=== PATIENT | female | born 1955 | race Caucasian/White ===

== ENCOUNTER 2020-04-30 13:10 | Inpatient (IN) ==
[2020-04-30] MEDS ORDERED: CeFAZolin Syr 2,000MG/20 ML 2,000 MG/20 ML SYRINGE IVPB ONE (13:43)
[2020-04-30] MEDS ORDERED: Ringers Solution, Lactated 1,000 ML IVC SCH ×2 (13:45→14:00)
[2020-04-30] MEDS ORDERED: Ketorolac 15 MG/ML VIAL IVP PRN (13:49)
[2020-04-30] MEDS ORDERED: Ondansetron 4 MG/2 ML VIAL IVP PRN ×2 (13:49→18:49)
[2020-04-30] MEDS ORDERED: Acetaminophen IV 1,000 MG/100 ML INFUS..BTL IVPB PRN (13:49)
[2020-04-30] MEDS ORDERED: *HR* OxyCODONE Immed Rel 5 MG TABLET PO PRN (13:49)
[2020-04-30] MEDS ORDERED: Acetaminophen IV 1,000 MG/100 ML INFUS..BTL ONE (14:24)
[2020-04-30] MEDS ORDERED: Hydrocortisone Sodium Succ 100 MG/2 ML VIAL ONE (14:24)
[2020-04-30] MEDS: *HR* HYDROmorphone PF 0.5 MG/0.5 ML SYRINGE IVP PRN ×4 (16:30→17:20)
[2020-04-30] MEDS ORDERED: Naloxone 0.4 MG/ML INJ IVP PRN (18:49)
[2020-04-30] MEDS ORDERED: 0.9 % Sodium Chloride 1,000 ML IVC SCH (18:49)
[2020-04-30] MEDS: Ipratropium/Albuterol Neb 3 ML IH SCH ×2 (19:56→23:23)
[2020-04-30] MEDS: Budesonide/Formoterol 160/4.5 1 PUFF INH IH SCH (19:56)
[2020-04-30] MEDS: Sennosides/Docusate Sodium TABLET PO SCH (21:09)
[2020-04-30] MEDS: *HR* Heparin 5,000 UNIT/ML VIAL SQ SCH (21:09)
[2020-04-30] MEDS: Gabapentin 300 MG CAPSULE PO SCH (21:13)
[2020-04-30] MEDS: Famotidine 20 MG TABLET PO SCH (21:13)
[2020-04-30] MEDS: Ketorolac 15 MG/ML VIAL IVP SCH (21:30)
[2020-05-01 01:59] LABS: Hematocrit 42.7 % (35.3-44.9); Hemoglobin 13.7 g/dL (11.5-15.4); Mean Corpuscular HGB Conc 32.1 g/dL (31.6-35.5); Mean Corpuscular Hemoglobin 30.1 pg (28.0-33.3); Mean Corpuscular Volume 93.8 fL (83.0-100.0); Mean Platelet Volume 11.7 fL (9.4-12.4); Platelet Count 165 K/mcL (140-400); Red Blood Count 4.55 M/mcL (3.82-4.97); Red Cell Distribution Width 12.7 % (11.5-14.5)
[2020-05-01 02:00] LABS: White Blood Count 13.8 K/mcL (4.3-11.1)
[2020-05-01 02:17] LABS: % Iron Saturation 7 % (15-50); BUN/Creatinine Ratio 30 (6-26); Blood Urea Nitrogen 20 mg/dL (8-23); Calcium 8.2 mg/dL (8.6-10.3); Carbon Dioxide 25 mEq/L (23-29); Chloride 107 mEq/L (98-107); Glucose 157 mg/dL (70-105); Iron 22 mcg/dL (50-170); Magnesium 1.9 mg/dL (1.6-2.6); Osmolality,Calculated 294 (280-300); Potassium 4.8 mEq/L (3.5-5.1); Sodium 139 mEq/L (136-145); Transferrin 221 mg/dL (203-362); eGFR For African Americans > 60 (> 60); eGFR For Non-African Americans > 60 (> 60)
[2020-05-01] MEDS: *HR* HYDROcodone/Acet 5/325 mg TABLET PO PRN ×4 (02:32→20:42)
[2020-05-01] MEDS: Ipratropium/Albuterol Neb 3 ML IH SCH ×6 (04:07→23:11)
[2020-05-01] MEDS: Ketorolac 15 MG/ML VIAL IVP SCH ×5 (05:46→23:17)
[2020-05-01] MEDS: *HR* Heparin 5,000 UNIT/ML VIAL SQ SCH ×3 (05:48→20:43)
[2020-05-01] MEDS: Tiotropium 18 MCG inhalation IH SCH (07:22)
[2020-05-01] MEDS: Budesonide/Formoterol 160/4.5 1 PUFF INH IH SCH ×2 (07:22→19:37)
[2020-05-01] MEDS ORDERED: Iron Sucrose Complex 400 MG in 0.9 % Sodium Chloride 250 ML IVPB ONE (10:11)
[2020-05-01] MEDS ORDERED: Folic Acid 1 MG in 0.9 % Sodium Chloride 50 ML IVPB ONE (10:11)
[2020-05-01] MEDS ORDERED: Thiamine (B-1) 100 MG in 0.9 % Sodium Chloride 50 ML IVPB ONE (10:11)
[2020-05-01] MEDS: Aspirin 81 MG TAB.CHEW PO SCH (10:16)
[2020-05-01] MEDS: Furosemide 20 MG TABLET PO SCH (10:17)
[2020-05-01] MEDS: Sennosides/Docusate Sodium TABLET PO SCH ×2 (10:18→20:42)
[2020-05-01] MEDS: Gabapentin 300 MG CAPSULE PO SCH ×3 (10:18→20:42)
[2020-05-01] MEDS: Famotidine 20 MG TABLET PO SCH ×2 (10:18→20:42)
[2020-05-02] MEDS: *HR* HYDROcodone/Acet 5/325 mg TABLET PO PRN ×4 (00:32→18:46)
[2020-05-02] MEDS: Ipratropium/Albuterol Neb 3 ML IH SCH ×5 (03:15→20:02)
[2020-05-02 05:32] LABS: BUN/Creatinine Ratio 26 (6-26); Blood Urea Nitrogen 18 mg/dL (8-23); Calcium 8.1 mg/dL (8.6-10.3); Carbon Dioxide 27 mEq/L (23-29); Chloride 107 mEq/L (98-107); Glucose 142 mg/dL (70-105); Osmolality,Calculated 290 (280-300); Phosphorous 2.6 mg/dL (2.7-4.5); Potassium 3.8 mEq/L (3.5-5.1); Sodium 138 mEq/L (136-145); eGFR For African Americans > 60 (> 60); eGFR For Non-African Americans > 60 (> 60)
[2020-05-02] MEDS: *HR* Heparin 5,000 UNIT/ML VIAL SQ SCH ×3 (05:32→21:07)
[2020-05-02] MEDS: Ketorolac 15 MG/ML VIAL IVP SCH ×4 (05:32→23:38)
[2020-05-02] MEDS: Budesonide/Formoterol 160/4.5 1 PUFF INH IH SCH ×2 (08:04→20:02)
[2020-05-02] MEDS: Tiotropium 18 MCG inhalation IH SCH (08:04)
[2020-05-02] MEDS ORDERED: Potassium Phosphate 44 MEQ in 0.9 % Sodium Chloride 250 ML IVPB ONE (09:15)
[2020-05-02] MEDS: Famotidine 20 MG TABLET PO SCH ×2 (09:25→21:06)
[2020-05-02] MEDS: Aspirin 81 MG TAB.CHEW PO SCH (09:25)
[2020-05-02] MEDS: Sennosides/Docusate Sodium TABLET PO SCH ×2 (09:25→21:06)
[2020-05-02] MEDS: Gabapentin 300 MG CAPSULE PO SCH ×3 (09:25→21:06)
[2020-05-02] MEDS: Furosemide 20 MG TABLET PO SCH (09:25)
[2020-05-02 15:18] LABS: Bacteria,Urine Few per hpf (None-Few); Bilirubin,Urine Negative (Negative); Blood,Urine Trace (Negative); Clarity,Urine Clear (Clear); Color,Urine Yellow (Yellow); Glucose,Urine (UA) Normal (Normal); Ketones,Urine Negative (Negative); Leukocyte Esterase,Urine Negative (Negative); Mucus,Urine Few per lpf (None-Few); Nitrite,Urine Negative (Negative); Protein,Urine Trace mg/dL (Neg-Trace); RBC,Urine 0-3 per hpf (0-3); Specific Gravity,Urine > 1.030 (1.010-1.025); Squamous Epithelial Cell,Urine Moderate per hpf (None-Few); Urobilinogen,Urine Normal (Normal)
[2020-05-03] MEDS: Ipratropium/Albuterol Neb 3 ML IH SCH ×7 (00:27→23:26)
[2020-05-03] MEDS: *HR* HYDROcodone/Acet 5/325 mg TABLET PO PRN ×5 (02:31→21:05)
[2020-05-03] MEDS: Ketorolac 15 MG/ML VIAL IVP SCH ×4 (05:51→23:14)
[2020-05-03] MEDS: *HR* Heparin 5,000 UNIT/ML VIAL SQ SCH ×3 (05:51→21:10)
[2020-05-03] MEDS: Budesonide/Formoterol 160/4.5 1 PUFF INH IH SCH ×2 (07:46→20:40)
[2020-05-03] MEDS: Tiotropium 18 MCG inhalation IH SCH (07:46)
[2020-05-03] MEDS: Furosemide 20 MG TABLET PO SCH (07:56)
[2020-05-03] MEDS: Sennosides/Docusate Sodium TABLET PO SCH ×2 (07:56→21:05)
[2020-05-03] MEDS: MOM Conc 10 ML UD.LIQ PO SCH (07:56)
[2020-05-03] MEDS: Gabapentin 300 MG CAPSULE PO SCH ×3 (07:56→21:05)
[2020-05-03] MEDS: Aspirin 81 MG TAB.CHEW PO SCH (07:56)
[2020-05-03] MEDS: Famotidine 20 MG TABLET PO SCH ×2 (07:56→21:04)
[2020-05-03] MEDS ORDERED: Iron Sucrose Complex 400 MG in 0.9 % Sodium Chloride 250 ML IVPB ONE (10:11)
[2020-05-04] MEDS: *HR* HYDROcodone/Acet 5/325 mg TABLET PO PRN ×3 (01:27→13:14)
[2020-05-04] MEDS: Ipratropium/Albuterol Neb 3 ML IH SCH ×6 (04:03→23:34)
[2020-05-04] MEDS: Ketorolac 15 MG/ML VIAL IVP SCH ×4 (05:27→23:48)
[2020-05-04] MEDS: *HR* Heparin 5,000 UNIT/ML VIAL SQ SCH ×3 (05:28→21:14)
[2020-05-04] MEDS: Famotidine 20 MG TABLET PO SCH ×2 (07:40→21:14)
[2020-05-04] MEDS: Gabapentin 300 MG CAPSULE PO SCH ×3 (07:41→21:14)
[2020-05-04] MEDS: Furosemide 20 MG TABLET PO SCH (07:41)
[2020-05-04] MEDS: MOM Conc 10 ML UD.LIQ PO SCH (07:41)
[2020-05-04] MEDS: Sennosides/Docusate Sodium TABLET PO SCH ×2 (07:41→21:14)
[2020-05-04] MEDS: Aspirin 81 MG TAB.CHEW PO SCH (07:41)
[2020-05-04] MEDS: Tiotropium 18 MCG inhalation IH SCH (11:15)
[2020-05-04] MEDS: Budesonide/Formoterol 160/4.5 1 PUFF INH IH SCH ×2 (11:15→19:35)
[2020-05-05] MEDS: Ipratropium/Albuterol Neb 3 ML IH SCH ×2 (04:17→07:57)
[2020-05-05 04:38] LABS: BUN/Creatinine Ratio 23 (6-26); Blood Urea Nitrogen 14 mg/dL (8-23); Calcium 8.6 mg/dL (8.6-10.3); Carbon Dioxide 29 mEq/L (23-29); Chloride 106 mEq/L (98-107); Glucose 116 mg/dL (70-105); Magnesium 2.2 mg/dL (1.6-2.6); Osmolality,Calculated 291 (280-300); Sodium 140 mEq/L (136-145); eGFR For African Americans > 60 (> 60); eGFR For Non-African Americans > 60 (> 60)
[2020-05-05 04:51] LABS: Mean Corpuscular HGB Conc 32.5 g/dL (31.6-35.5); Mean Corpuscular Hemoglobin 30.5 pg (28.0-33.3); Mean Corpuscular Volume 93.8 fL (83.0-100.0); Mean Platelet Volume 11.7 fL (9.4-12.4); Platelet Count 157 K/mcL (140-400); Red Blood Count 3.41 M/mcL (3.82-4.97); Red Cell Distribution Width 13.3 % (11.5-14.5); White Blood Count 8.4 K/mcL (4.3-11.1)
[2020-05-05 06:25] LABS: Hemoglobin 10.4 g/dL (11.5-15.4)
[2020-05-05] MEDS: *HR* Heparin 5,000 UNIT/ML VIAL SQ SCH (06:56)
[2020-05-05] MEDS: Ketorolac 15 MG/ML VIAL IVP SCH (06:57)
[2020-05-05 07:08] VITALS: BP 141/76
[2020-05-05] MEDS: *HR* HYDROcodone/Acet 5/325 mg TABLET PO PRN (07:50)
[2020-05-05] MEDS: Budesonide/Formoterol 160/4.5 1 PUFF INH IH SCH (07:57)
[2020-05-05] MEDS: Tiotropium 18 MCG inhalation IH SCH (08:12)
[2020-05-05] MEDS: MOM Conc 10 ML UD.LIQ PO SCH (09:56)
[2020-05-05] MEDS: Gabapentin 300 MG CAPSULE PO SCH (09:57)
[2020-05-05] MEDS: Furosemide 20 MG TABLET PO SCH (09:57)
[2020-05-05] MEDS: Famotidine 20 MG TABLET PO SCH (09:58)
[2020-05-05] MEDS: Aspirin 81 MG TAB.CHEW PO SCH (09:58)
[2020-05-05] MEDS: Sennosides/Docusate Sodium TABLET PO SCH (09:58)
== END 2020-05-05 11:29 | disposition home health service (06) | DRG 165 ==
LOC: SAMDAY 13:10 → 2NNU 18:22
PROVIDERS: ADMIT Thoracic Surgery (Cardiothoracic Vascular Surgery); ATTEND Thoracic Surgery (Cardiothoracic Vascular Surgery)

== ENCOUNTER 2020-05-21 06:51 | Inpatient (IN) ==
[2020-05-21] MEDS ORDERED: Ipratropium/Albuterol Neb 3 ML IH ONE (07:05)
[2020-05-21 07:39] LABS: Basophils # 0.1 K/mcL (0.0-0.2); Basophils % 0.5 %; Eosinophils # 0.1 K/mcL (0.0-0.6); Eosinophils % 0.7 %; Hematocrit 33.5 % (35.3-44.9); Hemoglobin 10.5 g/dL (11.5-15.4); Immature Granulocytes % 1.8 % (0-4); Lymphocytes # 0.5 K/mcL (0.6-4.6); Lymphocytes % 4.1 %; Mean Corpuscular HGB Conc 31.3 g/dL (31.6-35.5); Mean Corpuscular Hemoglobin 28.5 pg (28.0-33.3); Mean Corpuscular Volume 90.8 fL (83.0-100.0); Monocytes # 0.8 K/mcL (0.0-1.3); Monocytes % 6.2 %; Neutrophils # 10.6 K/mcL (1.6-8.9); Platelet Count 565 K/mcL (140-400); Red Blood Count 3.69 M/mcL (3.82-4.97); Red Cell Distribution Width 15.3 % (11.5-14.5); Segmented Neutrophils % 86.7 %; White Blood Count 12.2 K/mcL (4.3-11.1)
[2020-05-21 08:01] LABS: INR 1.5; Prothrombin Time 17.6 Seconds (9.4-12.1)
[2020-05-21] MEDS ORDERED: Azithromycin 500 MG in 0.9 % Sodium Chloride 250 ML IVPB ONE (08:02)
[2020-05-21] MEDS ORDERED: cefTRIAXone 1,000 MG in 0.9 % Sodium Chloride Mini Bag 100 ML IVPB ONE (08:02)
[2020-05-21 08:04] LABS: Activated Partial Thrombo Time 31.7 Seconds (26.0-36.0)
[2020-05-21 08:20] LABS: Fibrinogen > 1000 mg/dL (169-393)
[2020-05-21 08:21] LABS: Alanine Aminotransferase 108 Units/L (7-52); Albumin 2.8 g/dL (3.5-5.7); Albumin/Globulin Ratio 0.6 (1.1-2.2); Alkaline Phosphatase 242 Units/L (34-104); Aspartate Amino Transferase 112 Units/L (13-39); BUN/Creatinine Ratio 29 (6-26); Bilirubin,Indirect 0.4 mg/dL (0.0-1.0); Bilirubin,Total 0.4 mg/dL (0.3-1.0); Blood Urea Nitrogen 14 mg/dL (8-23); Calcium 8.4 mg/dL (8.6-10.3); Carbon Dioxide 27 mEq/L (23-29); Chloride 101 mEq/L (98-107); Ferritin 840 ng/mL (10-120); Globulin 4.8 g/dL (2.4-3.5); Glucose 139 mg/dL (70-105); Lactate Dehydrogenase 193 Units/L (140-271); Osmolality,Calculated 285 (280-300); Phosphorous 3.9 mg/dL (2.7-4.5); Potassium 3.7 mEq/L (3.5-5.1); Sodium 136 mEq/L (136-145); Total Protein 7.6 g/dL (6.4-8.9); Troponin I < 0.03 ng/mL (< 0.04); eGFR For African Americans > 60 (> 60); eGFR For Non-African Americans > 60 (> 60)
[2020-05-21] MEDS ORDERED: Isovue-370 500 ML BOTTLE IVP ONE (08:30)
[2020-05-21 09:17] LABS: C-Reactive Protein > 300 mg/L (Less than 10)
[2020-05-21 09:19] LABS: Bilirubin,Urine Negative (Negative); Blood,Urine Negative (Negative); Clarity,Urine Clear (Clear); Color,Urine Yellow (Yellow); Glucose,Urine (UA) Normal (Normal); Ketones,Urine 20 mg/dL (Negative); Leukocyte Esterase,Urine Negative (Negative); Mucus,Urine Few per lpf (None-Few); Nitrite,Urine Negative (Negative); Protein,Urine 30 mg/dL (Neg-Trace); Specific Gravity,Urine 1.029 (1.010-1.025); Squamous Epithelial Cell,Urine Moderate per hpf (None-Few); WBC,Urine 0-3 per hpf (0-3)
[2020-05-21] MEDS ORDERED: *HR* HYDROmorphone 2 MG/ML SYRINGE IVP STA (09:43)
[2020-05-21] MEDS ORDERED: Ondansetron 4 MG/2 ML VIAL IVP PRN (10:02)
[2020-05-21] MEDS ORDERED: *HR* HYDROcodone/Acet 5/325 mg TABLET PO PRN (10:02)
[2020-05-21] MEDS ORDERED: 0.9 % Sodium Chloride 1,000 ML IVC SCH (10:15)
[2020-05-21 10:17] LABS: Adenovirus Not Detected (Not Detect); Bordetella Pertussis Not Detected (Not Detect); Chlamydophila pneumoniae Not Detected (Not Detect); Coronavirus 229E Not Detected (Not Detect); Coronavirus HKU1 Not Detected (Not Detect); Coronavirus NL63 Not Detected (Not Detect); Coronavirus OC43 Not Detected (Not Detect); Human Metapneumovirus Not Detected (Not Detect); Human Rhinovirus/Enterovirus Not Detected (Not Detect); Influenza A Subtype 2009 H1 Not Detected (Not Detect); Influenza B Not Detected (Not Detect); Mycoplasma pneumoniae Not Detected (Not Detect); Parainfluenza Virus 1 Not Detected (Not Detect); Parainfluenza Virus 2 Not Detected (Not Detect); Parainfluenza Virus 3 Not Detected (Not Detect); Parainfluenza Virus 4 Not Detected (Not Detect); Respiratory Syncytial Virus Not Detected (Not Detect); SARS-CoV-2 Not Detected (Not Detect)
[2020-05-21] MEDS ORDERED: Ipratropium/Albuterol Neb 3 ML IH SCH (12:00)
[2020-05-21] MEDS ORDERED: *HR* Heparin 5,000 UNIT/ML VIAL SQ SCH (14:00)
[2020-05-21] MEDS: Gabapentin 300 MG CAPSULE PO SCH ×2 (14:24→20:36)
[2020-05-21] MEDS: *HR* Heparin 5,000 UNIT/ML VIAL SQ SCH ×2 (14:25→20:36)
[2020-05-21] MEDS: 0.9 % Sodium Chloride 1,000 ML IVC SCH (14:26)
[2020-05-21] MEDS ORDERED: Gabapentin 300 MG CAPSULE PO SCH (15:00)
[2020-05-21] MEDS ORDERED: Famotidine 20 MG TABLET PO SCH (16:30)
[2020-05-21] MEDS: Ipratropium/Albuterol Neb 3 ML IH SCH ×3 (16:39→23:48)
[2020-05-21] MEDS: *HR* HYDROcodone/Acet 5/325 mg TABLET PO PRN ×2 (17:21→21:22)
[2020-05-21] MEDS: Famotidine 20 MG TABLET PO SCH (17:24)
[2020-05-21] MEDS: Sennosides/Docusate Sodium TABLET PO SCH (20:36)
[2020-05-21] MEDS ORDERED: Sennosides/Docusate Sodium TABLET PO SCH (21:00)
[2020-05-22] MEDS: Ondansetron 4 MG/2 ML VIAL IVP PRN ×2 (00:30→07:15)
[2020-05-22] MEDS: 0.9 % Sodium Chloride 1,000 ML IVC SCH ×2 (01:23→13:52)
[2020-05-22] MEDS: Ipratropium/Albuterol Neb 3 ML IH SCH ×6 (03:41→23:47)
[2020-05-22] MEDS: *HR* Heparin 5,000 UNIT/ML VIAL SQ SCH ×3 (06:12→20:48)
[2020-05-22 06:40] LABS: Hematocrit 30.9 % (35.3-44.9); Hemoglobin 9.7 g/dL (11.5-15.4); Mean Corpuscular HGB Conc 31.4 g/dL (31.6-35.5); Mean Corpuscular Hemoglobin 29.3 pg (28.0-33.3); Mean Corpuscular Volume 93.4 fL (83.0-100.0); Platelet Count 477 K/mcL (140-400); Red Blood Count 3.31 M/mcL (3.82-4.97); Red Cell Distribution Width 15.8 % (11.5-14.5); White Blood Count 8.5 K/mcL (4.3-11.1)
[2020-05-22 06:59] LABS: BUN/Creatinine Ratio 27 (6-26); Blood Urea Nitrogen 14 mg/dL (8-23); Calcium 7.9 mg/dL (8.6-10.3); Carbon Dioxide 25 mEq/L (23-29); Chloride 101 mEq/L (98-107); Glucose 108 mg/dL (70-105); Osmolality,Calculated 279 (280-300); Potassium 4.3 mEq/L (3.5-5.1); Sodium 134 mEq/L (136-145); eGFR For African Americans > 60 (> 60); eGFR For Non-African Americans > 60 (> 60)
[2020-05-22] MEDS: Famotidine 20 MG TABLET PO SCH ×2 (07:16→16:18)
[2020-05-22] MEDS: Gabapentin 300 MG CAPSULE PO SCH ×3 (07:16→20:50)
[2020-05-22] MEDS: Sennosides/Docusate Sodium TABLET PO SCH ×2 (07:17→20:48)
[2020-05-22] MEDS: *HR* HYDROcodone/Acet 5/325 mg TABLET PO PRN ×3 (07:17→20:50)
[2020-05-22] MEDS: cefTRIAXone 2,000 MG in 0.9 % Sodium Chloride Mini Bag 100 ML IVPB SCH (07:22)
[2020-05-22] MEDS: Azithromycin 500 MG in 0.9 % Sodium Chloride 250 ML IVPB SCH (07:22)
[2020-05-22] MEDS ORDERED: cefTRIAXone 2,000 MG in 0.9 % Sodium Chloride Mini Bag 100 ML IVPB SCH (09:00)
[2020-05-22] MEDS ORDERED: Isosorbide MONOnitrate (24 HR) 30 MG TAB.ER.24H PO SCH ×2 (09:00)
[2020-05-22] MEDS ORDERED: Azithromycin 500 MG in 0.9 % Sodium Chloride 250 ML IVPB SCH (09:00)
[2020-05-22] MEDS ORDERED: Aspirin 81 MG TAB.CHEW PO SCH ×2 (09:00)
[2020-05-23 02:45] LABS: Hematocrit 29.1 % (35.3-44.9); Hemoglobin 8.7 g/dL (11.5-15.4); Mean Corpuscular HGB Conc 29.9 g/dL (31.6-35.5); Mean Corpuscular Hemoglobin 28.4 pg (28.0-33.3); Mean Corpuscular Volume 95.1 fL (83.0-100.0); Mean Platelet Volume 10.2 fL (9.4-12.4); Platelet Count 429 K/mcL (140-400); Red Blood Count 3.06 M/mcL (3.82-4.97); Red Cell Distribution Width 15.9 % (11.5-14.5); White Blood Count 6.9 K/mcL (4.3-11.1)
[2020-05-23 02:55] LABS: BUN/Creatinine Ratio 28 (6-26); Blood Urea Nitrogen 14 mg/dL (8-23); Calcium 7.6 mg/dL (8.6-10.3); Carbon Dioxide 24 mEq/L (23-29); Chloride 103 mEq/L (98-107); Glucose 107 mg/dL (70-105); Osmolality,Calculated 279 (280-300); Potassium 3.9 mEq/L (3.5-5.1); Sodium 134 mEq/L (136-145); eGFR For African Americans > 60 (> 60); eGFR For Non-African Americans > 60 (> 60)
[2020-05-23] MEDS: 0.9 % Sodium Chloride 1,000 ML IVC SCH ×3 (03:47→16:12)
[2020-05-23] MEDS: Ipratropium/Albuterol Neb 3 ML IH SCH ×6 (03:49→20:46)
[2020-05-23] MEDS: *HR* Heparin 5,000 UNIT/ML VIAL SQ SCH ×3 (04:24→21:35)
[2020-05-23] MEDS ORDERED: *HR* Midazolam HCl 2 MG/2 ML VIAL IVP PRN (07:18)
[2020-05-23] MEDS ORDERED: *HR* OxyCODONE Immed Rel 5 MG TABLET PO PRN (07:18)
[2020-05-23] MEDS ORDERED: Ondansetron 4 MG/2 ML VIAL ONE (07:28)
[2020-05-23] MEDS ORDERED: Lidocaine -MPF 4% 5 ML AMPUL ONE ×2 (07:28→08:14)
[2020-05-23] MEDS ORDERED: *HR* Succinylcholine 200 MG/10 ML VIAL IVP ONE (07:28)
[2020-05-23] MEDS ORDERED: Lidocaine -MPF 2% 2 ML VIAL ONE (07:28)
[2020-05-23] MEDS ORDERED: *HR* Rocuronium Bromide 50 MG/5 ML VIAL ONE ×2 (07:28→08:46)
[2020-05-23] MEDS ORDERED: *HR* FentaNYL (PF) 100 MCG/2 ML VIAL ONE (07:28)
[2020-05-23] MEDS ORDERED: *HR* Propofol 200 MG/20 ML VIAL IVP ONE (07:28)
[2020-05-23] MEDS: cefTRIAXone 2,000 MG in 0.9 % Sodium Chloride Mini Bag 100 ML IVPB SCH (08:45)
[2020-05-23] MEDS ORDERED: Albumin Human 5% 12.5 GM/250 ML IV.SOLN ONE ×2 (08:48)
[2020-05-23] MEDS: Azithromycin 500 MG in 0.9 % Sodium Chloride 250 ML IVPB SCH (09:00)
[2020-05-23] MEDS ORDERED: Tranexamic Acid 1,000 MG/10 ML VIAL ONE (09:01)
[2020-05-23] MEDS ORDERED: Sugammadex Sodium 200 MG/2 ML VIAL IV ONE (09:28)
[2020-05-23] MEDS: *HR* HYDROmorphone PF 0.5 MG/0.5 ML SYRINGE IVP PRN ×4 (09:43→10:07)
[2020-05-23] MEDS: *HR* FentaNYL (PF) 100 MCG/2 ML VIAL IVP PRN ×3 (10:19→11:08)
[2020-05-23] MEDS ORDERED: Acetaminophen IV 1,000 MG/100 ML BAG IVPB ONE (10:51)
[2020-05-23] MEDS ORDERED: Ringers Solution, Lactated 1,000 ML ONE (10:51)
[2020-05-23 10:56] LABS: Basophils % 0.3 %; Eosinophils % 0.3 %; Hematocrit 25.4 % (35.3-44.9); Hemoglobin 7.7 g/dL (11.5-15.4); Immature Granulocytes % 2.4 % (0-4); Lymphocytes # 0.7 K/mcL (0.6-4.6); Lymphocytes % 5.4 %; Mean Corpuscular HGB Conc 30.3 g/dL (31.6-35.5); Mean Corpuscular Hemoglobin 29.3 pg (28.0-33.3); Mean Corpuscular Volume 96.6 fL (83.0-100.0); Monocytes # 0.3 K/mcL (0.0-1.3); Monocytes % 2.4 %; Platelet Count 456 K/mcL (140-400); Red Blood Count 2.63 M/mcL (3.82-4.97); Red Cell Distribution Width 15.8 % (11.5-14.5); Segmented Neutrophils % 89.2 %
[2020-05-23 11:02] LABS: Neutrophils # 11.9 K/mcL (1.6-8.9); White Blood Count 13.3 K/mcL (4.3-11.1)
[2020-05-23 12:14] LABS: Basophils % 0.2 %; Hematocrit 25.9 % (35.3-44.9); Hemoglobin 7.7 g/dL (11.5-15.4); Immature Granulocytes % 1.9 % (0-4); Lymphocytes # 0.6 K/mcL (0.6-4.6); Lymphocytes % 4.9 %; Mean Corpuscular HGB Conc 29.7 g/dL (31.6-35.5); Mean Corpuscular Hemoglobin 28.4 pg (28.0-33.3); Mean Corpuscular Volume 95.6 fL (83.0-100.0); Mean Platelet Volume 9.9 fL (9.4-12.4); Monocytes # 0.4 K/mcL (0.0-1.3); Monocytes % 2.8 %; Neutrophils # 11.3 K/mcL (1.6-8.9); Platelet Count 451 K/mcL (140-400); Red Blood Count 2.71 M/mcL (3.82-4.97); Red Cell Distribution Width 15.7 % (11.5-14.5); Segmented Neutrophils % 90.2 %; White Blood Count 12.5 K/mcL (4.3-11.1)
[2020-05-23] MEDS: *HR* HYDROcodone/Acet 10/325 mg TABLET PO PRN ×2 (12:17→18:37)
[2020-05-23] MEDS: Gabapentin 300 MG CAPSULE PO SCH ×2 (14:29→21:36)
[2020-05-23] MEDS: *HR* HYDROmorphone (PF) 1 MG/ML SYRINGE IVP PRN (21:23)
[2020-05-23] MEDS: Sennosides/Docusate Sodium TABLET PO SCH (21:35)
[2020-05-24] MEDS: *HR* HYDROmorphone (PF) 1 MG/ML SYRINGE IVP PRN ×3 (00:05→05:48)
[2020-05-24] MEDS: Ipratropium/Albuterol Neb 3 ML IH SCH ×7 (00:34→23:51)
[2020-05-24] MEDS: *HR* HYDROcodone/Acet 10/325 mg TABLET PO PRN ×3 (03:04→21:56)
[2020-05-24 03:18] LABS: Hematocrit 25.2 % (35.3-44.9); Hemoglobin 7.8 g/dL (11.5-15.4); Mean Corpuscular Hemoglobin 29.1 pg (28.0-33.3); Mean Platelet Volume 9.7 fL (9.4-12.4); Platelet Count 464 K/mcL (140-400); Red Blood Count 2.68 M/mcL (3.82-4.97); Red Cell Distribution Width 15.3 % (11.5-14.5)
[2020-05-24 03:34] LABS: BUN/Creatinine Ratio 31 (6-26); Blood Urea Nitrogen 12 mg/dL (8-23); Calcium 8.1 mg/dL (8.6-10.3); Carbon Dioxide 28 mEq/L (23-29); Chloride 99 mEq/L (98-107); Glucose 120 mg/dL (70-105); Osmolality,Calculated 275 (280-300); Potassium 4.8 mEq/L (3.5-5.1); Sodium 132 mEq/L (136-145); eGFR For African Americans > 60 (> 60); eGFR For Non-African Americans > 60 (> 60)
[2020-05-24] MEDS: *HR* Heparin 5,000 UNIT/ML VIAL SQ SCH ×3 (05:48→21:53)
[2020-05-24] MEDS ORDERED: *HR* HYDROmorphone (PF) 1 MG/ML SYRINGE IVP ONE (06:53)
[2020-05-24] MEDS ORDERED: cefTRIAXone 2,000 MG in 0.9 % Sodium Chloride Mini Bag 100 ML IVPB SCH (09:00)
[2020-05-24] MEDS ORDERED: Azithromycin 500 MG in 0.9 % Sodium Chloride 250 ML IVPB SCH (09:00)
[2020-05-24] MEDS: polyethylene glycoL 3350 17 GM POWD.PACK PO SCH (09:06)
[2020-05-24] MEDS: Sennosides/Docusate Sodium TABLET PO SCH ×2 (09:07→21:53)
[2020-05-24] MEDS: Isosorbide MONOnitrate (24 HR) 30 MG TAB.ER.24H PO SCH (09:07)
[2020-05-24] MEDS: Gabapentin 300 MG CAPSULE PO SCH ×3 (09:07→21:52)
[2020-05-24] MEDS: Aspirin 81 MG TAB.CHEW PO SCH (09:08)
[2020-05-24] MEDS: Ketorolac 15 MG/ML VIAL IVP SCH ×3 (11:47→20:27)
[2020-05-24] MEDS: 0.9 % Sodium Chloride 1,000 ML IVC SCH (15:52)
[2020-05-24] MEDS ORDERED: 0.9 % Sodium Chloride 500 ML IVC ONE (21:42)
[2020-05-25] MEDS: Ketorolac 15 MG/ML VIAL IVP SCH ×6 (00:01→23:16)
[2020-05-25 03:16] LABS: Red Cell Distribution Width 15.4 % (11.5-14.5)
[2020-05-25 03:17] LABS: Hematocrit 19.3 % (35.3-44.9); Mean Corpuscular HGB Conc 30.6 g/dL (31.6-35.5); Mean Corpuscular Hemoglobin 28.9 pg (28.0-33.3); Mean Corpuscular Volume 94.6 fL (83.0-100.0); Mean Platelet Volume 10.1 fL (9.4-12.4); Platelet Count 396 K/mcL (140-400); Red Blood Count 2.04 M/mcL (3.82-4.97); White Blood Count 10.6 K/mcL (4.3-11.1)
[2020-05-25 03:26] LABS: Hemoglobin 5.9 g/dL (11.5-15.4)
[2020-05-25 03:37] LABS: BUN/Creatinine Ratio 28 (6-26); Blood Urea Nitrogen 12 mg/dL (8-23); Calcium 7.2 mg/dL (8.6-10.3); Carbon Dioxide 27 mEq/L (23-29); Chloride 102 mEq/L (98-107); Glucose 105 mg/dL (70-105); Osmolality,Calculated 278 (280-300); Potassium 3.9 mEq/L (3.5-5.1); Sodium 134 mEq/L (136-145); eGFR For African Americans > 60 (> 60); eGFR For Non-African Americans > 60 (> 60)
[2020-05-25] MEDS: Ipratropium/Albuterol Neb 3 ML IH SCH ×6 (03:58→23:52)
[2020-05-25] MEDS: *HR* Heparin 5,000 UNIT/ML VIAL SQ SCH ×3 (04:17→21:18)
[2020-05-25] MEDS ORDERED: 0.9 % Sodium Chloride 250 ML ONE ×2 (04:31→09:42)
[2020-05-25] MEDS: *HR* HYDROmorphone (PF) 1 MG/ML SYRINGE IVP PRN (05:25)
[2020-05-25] MEDS: 0.9 % Sodium Chloride 1,000 ML IVC SCH ×2 (06:21→19:39)
[2020-05-25] MEDS: Aspirin 81 MG TAB.CHEW PO SCH (09:15)
[2020-05-25] MEDS: Gabapentin 300 MG CAPSULE PO SCH ×3 (09:15→19:40)
[2020-05-25] MEDS: Sennosides/Docusate Sodium TABLET PO SCH ×2 (09:15→19:40)
[2020-05-25] MEDS: Isosorbide MONOnitrate (24 HR) 30 MG TAB.ER.24H PO SCH (09:16)
[2020-05-25] MEDS: polyethylene glycoL 3350 17 GM POWD.PACK PO SCH (09:37)
[2020-05-25] MEDS: ceFAZolin 2,000 MG in 0.9 % Sodium Chloride 100 ML IVPB SCH ×2 (15:24→23:23)
[2020-05-25] MEDS: *HR* HYDROcodone/Acet 10/325 mg TABLET PO PRN ×2 (15:24→21:15)
[2020-05-25 17:42] LABS: Hematocrit 27.5 % (35.3-44.9); Mean Corpuscular HGB Conc 31.6 g/dL (31.6-35.5); Mean Corpuscular Hemoglobin 28.8 pg (28.0-33.3); Mean Corpuscular Volume 91.1 fL (83.0-100.0); Mean Platelet Volume 10.1 fL (9.4-12.4); Platelet Count 411 K/mcL (140-400); Red Blood Count 3.02 M/mcL (3.82-4.97); Red Cell Distribution Width 14.9 % (11.5-14.5); White Blood Count 13.4 K/mcL (4.3-11.1)
[2020-05-25 17:44] LABS: Hemoglobin 8.7 g/dL (11.5-15.4)
[2020-05-26 02:27] LABS: Hematocrit 24.9 % (35.3-44.9); Hemoglobin 7.8 g/dL (11.5-15.4); Mean Corpuscular HGB Conc 31.3 g/dL (31.6-35.5); Mean Corpuscular Hemoglobin 29.3 pg (28.0-33.3); Mean Corpuscular Volume 93.6 fL (83.0-100.0); Platelet Count 408 K/mcL (140-400); Red Blood Count 2.66 M/mcL (3.82-4.97); Red Cell Distribution Width 15.3 % (11.5-14.5); White Blood Count 9.9 K/mcL (4.3-11.1)
[2020-05-26 02:43] LABS: BUN/Creatinine Ratio 23 (6-26); Blood Urea Nitrogen 9 mg/dL (8-23); Calcium 7.4 mg/dL (8.6-10.3); Carbon Dioxide 27 mEq/L (23-29); Chloride 105 mEq/L (98-107); Glucose 120 mg/dL (70-105); Osmolality,Calculated 286 (280-300); Potassium 3.7 mEq/L (3.5-5.1); Sodium 138 mEq/L (136-145); eGFR For African Americans > 60 (> 60); eGFR For Non-African Americans > 60 (> 60)
[2020-05-26] MEDS: *HR* HYDROcodone/Acet 10/325 mg TABLET PO PRN ×3 (03:42→19:50)
[2020-05-26] MEDS: Ipratropium/Albuterol Neb 3 ML IH SCH ×6 (04:01→23:44)
[2020-05-26] MEDS: *HR* Heparin 5,000 UNIT/ML VIAL SQ SCH ×3 (05:34→21:13)
[2020-05-26] MEDS: Ketorolac 15 MG/ML VIAL IVP SCH ×4 (05:34→23:28)
[2020-05-26] MEDS: ceFAZolin 2,000 MG in 0.9 % Sodium Chloride 100 ML IVPB SCH ×3 (08:26→23:27)
[2020-05-26] MEDS: Sennosides/Docusate Sodium TABLET PO SCH ×2 (08:28→19:50)
[2020-05-26] MEDS: Aspirin 81 MG TAB.CHEW PO SCH (08:28)
[2020-05-26] MEDS: Gabapentin 300 MG CAPSULE PO SCH ×3 (08:28→19:50)
[2020-05-26] MEDS: polyethylene glycoL 3350 17 GM POWD.PACK PO SCH (10:51)
[2020-05-26] MEDS: 0.9 % Sodium Chloride 1,000 ML IVC SCH ×2 (10:56→23:27)
[2020-05-27] MEDS: *HR* HYDROcodone/Acet 10/325 mg TABLET PO PRN ×3 (03:32→21:06)
[2020-05-27] MEDS: Ipratropium/Albuterol Neb 3 ML IH SCH ×6 (03:38→23:50)
[2020-05-27] MEDS: *HR* Heparin 5,000 UNIT/ML VIAL SQ SCH ×3 (05:32→21:07)
[2020-05-27] MEDS: Ketorolac 15 MG/ML VIAL IVP SCH ×4 (05:32→23:25)
[2020-05-27] MEDS: polyethylene glycoL 3350 17 GM POWD.PACK PO SCH (08:08)
[2020-05-27] MEDS: Aspirin 81 MG TAB.CHEW PO SCH (08:09)
[2020-05-27] MEDS: Gabapentin 300 MG CAPSULE PO SCH ×3 (08:09→21:06)
[2020-05-27] MEDS: Sennosides/Docusate Sodium TABLET PO SCH ×2 (08:09→21:06)
[2020-05-27] MEDS: ceFAZolin 2,000 MG in 0.9 % Sodium Chloride 100 ML IVPB SCH ×3 (08:27→23:25)
[2020-05-27] MEDS: 0.9 % Sodium Chloride 1,000 ML IVC SCH (13:57)
[2020-05-27] MEDS: *HR* HYDROmorphone (PF) 1 MG/ML SYRINGE IVP PRN (16:26)
[2020-05-28] MEDS: Ipratropium/Albuterol Neb 3 ML IH SCH ×6 (03:39→23:12)
[2020-05-28] MEDS: *HR* Heparin 5,000 UNIT/ML VIAL SQ SCH ×3 (05:04→21:51)
[2020-05-28] MEDS: Ketorolac 15 MG/ML VIAL IVP SCH ×4 (05:04→23:51)
[2020-05-28] MEDS: 0.9 % Sodium Chloride 1,000 ML IVC SCH ×2 (05:05→21:51)
[2020-05-28] MEDS: *HR* HYDROcodone/Acet 10/325 mg TABLET PO PRN ×3 (09:11→22:52)
[2020-05-28] MEDS: polyethylene glycoL 3350 17 GM POWD.PACK PO SCH (09:12)
[2020-05-28] MEDS: Sennosides/Docusate Sodium TABLET PO SCH ×2 (09:12→21:52)
[2020-05-28] MEDS: ceFAZolin 2,000 MG in 0.9 % Sodium Chloride 100 ML IVPB SCH ×3 (09:12→23:51)
[2020-05-28] MEDS: Gabapentin 300 MG CAPSULE PO SCH ×3 (09:12→21:51)
[2020-05-28] MEDS: Aspirin 81 MG TAB.CHEW PO SCH (09:12)
[2020-05-29] MEDS: Ipratropium/Albuterol Neb 3 ML IH SCH ×6 (03:56→23:41)
[2020-05-29] MEDS: *HR* Heparin 5,000 UNIT/ML VIAL SQ SCH ×3 (06:18→20:54)
[2020-05-29] MEDS: Ketorolac 15 MG/ML VIAL IVP SCH (06:18)
[2020-05-29] MEDS: Gabapentin 300 MG CAPSULE PO SCH ×3 (08:42→20:54)
[2020-05-29] MEDS: Aspirin 81 MG TAB.CHEW PO SCH (08:42)
[2020-05-29] MEDS: Sennosides/Docusate Sodium TABLET PO SCH ×2 (08:43→20:54)
[2020-05-29] MEDS: ceFAZolin 2,000 MG in 0.9 % Sodium Chloride 100 ML IVPB SCH ×2 (08:43→16:29)
[2020-05-29] MEDS: polyethylene glycoL 3350 17 GM POWD.PACK PO SCH (08:43)
[2020-05-29] MEDS: *HR* HYDROcodone/Acet 10/325 mg TABLET PO PRN ×2 (12:45→18:46)
[2020-05-29] MEDS: *HR* HYDROmorphone (PF) 1 MG/ML SYRINGE IVP PRN (20:56)
[2020-05-30] MEDS: ceFAZolin 2,000 MG in 0.9 % Sodium Chloride 100 ML IVPB SCH ×3 (00:09→15:09)
[2020-05-30 02:01] LABS: Basophils % 0.4 %; Eosinophils # 0.2 K/mcL (0.0-0.6); Eosinophils % 2.1 %; Hematocrit 27.2 % (35.3-44.9); Hemoglobin 8.4 g/dL (11.5-15.4); Immature Granulocytes % 1.2 % (0-4); Lymphocytes # 1.9 K/mcL (0.6-4.6); Lymphocytes % 18.7 %; Mean Corpuscular HGB Conc 30.9 g/dL (31.6-35.5); Mean Corpuscular Volume 93.8 fL (83.0-100.0); Monocytes # 0.9 K/mcL (0.0-1.3); Monocytes % 8.6 %; Platelet Count 452 K/mcL (140-400); Red Cell Distribution Width 15.4 % (11.5-14.5); White Blood Count 10.2 K/mcL (4.3-11.1)
[2020-05-30 02:20] LABS: BUN/Creatinine Ratio 23 (6-26); Blood Urea Nitrogen 10 mg/dL (8-23); Calcium 7.8 mg/dL (8.6-10.3); Carbon Dioxide 28 mEq/L (23-29); Chloride 101 mEq/L (98-107); Glucose 109 mg/dL (70-105); Osmolality,Calculated 282 (280-300); Potassium 3.7 mEq/L (3.5-5.1); Sodium 136 mEq/L (136-145); eGFR For African Americans > 60 (> 60); eGFR For Non-African Americans > 60 (> 60)
[2020-05-30] MEDS: Ipratropium/Albuterol Neb 3 ML IH SCH ×5 (04:05→19:57)
[2020-05-30] MEDS: *HR* Heparin 5,000 UNIT/ML VIAL SQ SCH ×3 (04:55→21:08)
[2020-05-30] MEDS: *HR* HYDROcodone/Acet 10/325 mg TABLET PO PRN ×3 (04:55→21:09)
[2020-05-30] MEDS: Sennosides/Docusate Sodium TABLET PO SCH ×2 (08:20→21:09)
[2020-05-30] MEDS: Aspirin 81 MG TAB.CHEW PO SCH (08:20)
[2020-05-30] MEDS: Gabapentin 300 MG CAPSULE PO SCH ×3 (08:20→21:09)
[2020-05-30] MEDS: *HR* HYDROmorphone (PF) 1 MG/ML SYRINGE IVP PRN ×2 (08:21→15:43)
[2020-05-30] MEDS: polyethylene glycoL 3350 17 GM POWD.PACK PO SCH (08:21)
[2020-05-30] MEDS: Isosorbide MONOnitrate (24 HR) 30 MG TAB.ER.24H PO SCH (12:28)
[2020-05-30] MEDS: Furosemide 20 MG TABLET PO SCH (12:28)
[2020-05-31] MEDS: Ipratropium/Albuterol Neb 3 ML IH SCH ×7 (00:06→23:07)
[2020-05-31] MEDS: ceFAZolin 2,000 MG in 0.9 % Sodium Chloride 100 ML IVPB SCH ×3 (00:53→15:36)
[2020-05-31] MEDS: *HR* HYDROmorphone (PF) 1 MG/ML SYRINGE IVP PRN ×2 (00:54→15:23)
[2020-05-31] MEDS: *HR* Heparin 5,000 UNIT/ML VIAL SQ SCH ×3 (05:06→20:28)
[2020-05-31] MEDS: *HR* HYDROcodone/Acet 10/325 mg TABLET PO PRN ×3 (05:07→20:28)
[2020-05-31] MEDS: Isosorbide MONOnitrate (24 HR) 30 MG TAB.ER.24H PO SCH (08:36)
[2020-05-31] MEDS: Gabapentin 300 MG CAPSULE PO SCH ×3 (08:36→20:28)
[2020-05-31] MEDS: Aspirin 81 MG TAB.CHEW PO SCH (08:36)
[2020-05-31] MEDS: Sennosides/Docusate Sodium TABLET PO SCH ×2 (08:36→20:29)
[2020-05-31] MEDS: Furosemide 20 MG TABLET PO SCH (08:37)
[2020-05-31] MEDS: polyethylene glycoL 3350 17 GM POWD.PACK PO SCH (08:38)
[2020-06-01] MEDS: *HR* HYDROmorphone (PF) 1 MG/ML SYRINGE IVP PRN ×2 (00:26→20:11)
[2020-06-01] MEDS: ceFAZolin 2,000 MG in 0.9 % Sodium Chloride 100 ML IVPB SCH ×4 (00:26→23:46)
[2020-06-01] MEDS: *HR* HYDROcodone/Acet 10/325 mg TABLET PO PRN ×3 (03:05→23:48)
[2020-06-01] MEDS: Ipratropium/Albuterol Neb 3 ML IH SCH ×6 (03:28→23:32)
[2020-06-01 04:59] LABS: Basophils # 0.1 K/mcL (0.0-0.2); Basophils % 0.6 %; Eosinophils # 0.3 K/mcL (0.0-0.6); Eosinophils % 2.7 %; Hematocrit 27.4 % (35.3-44.9); Hemoglobin 8.5 g/dL (11.5-15.4); Immature Granulocytes % 0.9 % (0-4); Lymphocytes % 19.3 %; Mean Corpuscular Hemoglobin 29.1 pg (28.0-33.3); Mean Corpuscular Volume 93.8 fL (83.0-100.0); Monocytes # 1.1 K/mcL (0.0-1.3); Monocytes % 10.8 %; Neutrophils # 6.7 K/mcL (1.6-8.9); Platelet Count 455 K/mcL (140-400); Red Blood Count 2.92 M/mcL (3.82-4.97); Red Cell Distribution Width 15.3 % (11.5-14.5); Segmented Neutrophils % 65.7 %; White Blood Count 10.1 K/mcL (4.3-11.1)
[2020-06-01 05:20] LABS: BUN/Creatinine Ratio 17 (6-26); Blood Urea Nitrogen 7 mg/dL (8-23); Calcium 8.2 mg/dL (8.6-10.3); Carbon Dioxide 30 mEq/L (23-29); Chloride 98 mEq/L (98-107); Glucose 108 mg/dL (70-105); Osmolality,Calculated 277 (280-300); Sodium 134 mEq/L (136-145); eGFR For African Americans > 60 (> 60); eGFR For Non-African Americans > 60 (> 60)
[2020-06-01] MEDS: *HR* Heparin 5,000 UNIT/ML VIAL SQ SCH ×3 (06:09→20:11)
[2020-06-01] MEDS: Isosorbide MONOnitrate (24 HR) 30 MG TAB.ER.24H PO SCH (08:20)
[2020-06-01] MEDS: Furosemide 20 MG TABLET PO SCH (08:20)
[2020-06-01] MEDS: Aspirin 81 MG TAB.CHEW PO SCH (08:20)
[2020-06-01] MEDS: polyethylene glycoL 3350 17 GM POWD.PACK PO SCH (08:20)
[2020-06-01] MEDS: Sennosides/Docusate Sodium TABLET PO SCH ×2 (08:20→20:12)
[2020-06-01] MEDS: Gabapentin 300 MG CAPSULE PO SCH ×3 (08:21→20:12)
[2020-06-02] MEDS: Ipratropium/Albuterol Neb 3 ML IH SCH ×6 (03:40→23:02)
[2020-06-02] MEDS: *HR* HYDROmorphone (PF) 1 MG/ML SYRINGE IVP PRN (04:08)
[2020-06-02] MEDS: *HR* Heparin 5,000 UNIT/ML VIAL SQ SCH ×3 (05:11→20:25)
[2020-06-02] MEDS: Furosemide 20 MG TABLET PO SCH (08:21)
[2020-06-02] MEDS: Sennosides/Docusate Sodium TABLET PO SCH ×2 (08:21→20:25)
[2020-06-02] MEDS: Aspirin 81 MG TAB.CHEW PO SCH (08:22)
[2020-06-02] MEDS: Gabapentin 300 MG CAPSULE PO SCH ×3 (08:22→20:25)
[2020-06-02] MEDS: polyethylene glycoL 3350 17 GM POWD.PACK PO SCH (08:22)
[2020-06-02] MEDS: Isosorbide MONOnitrate (24 HR) 30 MG TAB.ER.24H PO SCH (08:22)
[2020-06-02] MEDS: ceFAZolin 2,000 MG in 0.9 % Sodium Chloride 100 ML IVPB SCH ×2 (08:27→15:02)
[2020-06-02] MEDS: *HR* HYDROcodone/Acet 10/325 mg TABLET PO PRN ×2 (13:04→20:25)
[2020-06-03] MEDS: *HR* HYDROmorphone (PF) 1 MG/ML SYRINGE IVP PRN ×3 (00:01→16:32)
[2020-06-03 01:34] LABS: Hematocrit 27.6 % (35.3-44.9); Hemoglobin 8.3 g/dL (11.5-15.4); Mean Corpuscular HGB Conc 30.1 g/dL (31.6-35.5); Mean Corpuscular Hemoglobin 28.4 pg (28.0-33.3); Mean Corpuscular Volume 94.5 fL (83.0-100.0); Mean Platelet Volume 10.2 fL (9.4-12.4); Platelet Count 447 K/mcL (140-400); Red Blood Count 2.92 M/mcL (3.82-4.97); Red Cell Distribution Width 15.2 % (11.5-14.5); White Blood Count 8.1 K/mcL (4.3-11.1)
[2020-06-03 01:56] LABS: BUN/Creatinine Ratio 24 (6-26); Blood Urea Nitrogen 10 mg/dL (8-23); Calcium 8.1 mg/dL (8.6-10.3); Carbon Dioxide 26 mEq/L (23-29); Chloride 98 mEq/L (98-107); Glucose 152 mg/dL (70-105); Iron 12 mcg/dL (50-170); Magnesium 1.8 mg/dL (1.6-2.6); Osmolality,Calculated 282 (280-300); Potassium 3.7 mEq/L (3.5-5.1); Sodium 135 mEq/L (136-145); eGFR For African Americans > 60 (> 60); eGFR For Non-African Americans > 60 (> 60)
[2020-06-03 02:14] LABS: % Iron Saturation 7 % (15-50); Transferrin 120 mg/dL (203-362)
[2020-06-03] MEDS: Ipratropium/Albuterol Neb 3 ML IH SCH ×6 (03:44→23:06)
[2020-06-03] MEDS: *HR* Heparin 5,000 UNIT/ML VIAL SQ SCH ×3 (05:32→21:08)
[2020-06-03] MEDS: *HR* HYDROcodone/Acet 10/325 mg TABLET PO PRN ×3 (05:36→21:09)
[2020-06-03] MEDS: Sennosides/Docusate Sodium TABLET PO SCH ×2 (07:51→21:09)
[2020-06-03] MEDS: Furosemide 20 MG TABLET PO SCH (07:52)
[2020-06-03] MEDS: Aspirin 81 MG TAB.CHEW PO SCH (07:52)
[2020-06-03] MEDS: polyethylene glycoL 3350 17 GM POWD.PACK PO SCH (07:52)
[2020-06-03] MEDS: Gabapentin 300 MG CAPSULE PO SCH ×3 (07:52→21:09)
[2020-06-03] MEDS: Isosorbide MONOnitrate (24 HR) 30 MG TAB.ER.24H PO SCH (07:52)
[2020-06-03] MEDS: ceFAZolin 2,000 MG in 0.9 % Sodium Chloride 100 ML IVPB SCH ×3 (07:57→16:41)
[2020-06-03] MEDS ORDERED: Iron Sucrose Complex 400 MG in 0.9 % Sodium Chloride 250 ML IVPB ONE (11:54)
[2020-06-03] MEDS ORDERED: Lidocaine -MPF 1% 5 ML AMPUL INFILT ONE (13:47)
[2020-06-04] MEDS: ceFAZolin 2,000 MG in 0.9 % Sodium Chloride 100 ML IVPB SCH ×3 (00:08→17:05)
[2020-06-04] MEDS: *HR* HYDROcodone/Acet 10/325 mg TABLET PO PRN ×4 (03:58→21:36)
[2020-06-04] MEDS: Ipratropium/Albuterol Neb 3 ML IH SCH ×6 (04:24→23:42)
[2020-06-04] MEDS: *HR* Heparin 5,000 UNIT/ML VIAL SQ SCH ×3 (05:22→21:35)
[2020-06-04] MEDS: Gabapentin 300 MG CAPSULE PO SCH ×3 (07:20→21:35)
[2020-06-04] MEDS: Aspirin 81 MG TAB.CHEW PO SCH (07:20)
[2020-06-04] MEDS: Sennosides/Docusate Sodium TABLET PO SCH ×2 (07:21→21:35)
[2020-06-04] MEDS: Furosemide 20 MG TABLET PO SCH (07:21)
[2020-06-04] MEDS: polyethylene glycoL 3350 17 GM POWD.PACK PO SCH (07:21)
[2020-06-04] MEDS: Isosorbide MONOnitrate (24 HR) 30 MG TAB.ER.24H PO SCH (07:21)
[2020-06-04] MEDS ORDERED: Thiamine (B-1) 100 MG in 0.9 % Sodium Chloride 50 ML IVPB ONE (13:58)
[2020-06-04] MEDS ORDERED: Folic Acid 1 MG in 0.9 % Sodium Chloride 50 ML IVPB ONE (13:58)
[2020-06-04] MEDS ORDERED: Iron Sucrose Complex 400 MG in 0.9 % Sodium Chloride 250 ML IVPB ONE (13:58)
[2020-06-05] MEDS: ceFAZolin 2,000 MG in 0.9 % Sodium Chloride 100 ML IVPB SCH ×3 (00:48→15:08)
[2020-06-05] MEDS: Ipratropium/Albuterol Neb 3 ML IH SCH ×6 (04:27→23:52)
[2020-06-05] MEDS: *HR* Heparin 5,000 UNIT/ML VIAL SQ SCH ×3 (04:30→21:15)
[2020-06-05] MEDS: *HR* HYDROcodone/Acet 10/325 mg TABLET PO PRN ×4 (04:30→21:13)
[2020-06-05] MEDS: Aspirin 81 MG TAB.CHEW PO SCH (07:44)
[2020-06-05] MEDS: Isosorbide MONOnitrate (24 HR) 30 MG TAB.ER.24H PO SCH (07:44)
[2020-06-05] MEDS: polyethylene glycoL 3350 17 GM POWD.PACK PO SCH (07:45)
[2020-06-05] MEDS: Furosemide 20 MG TABLET PO SCH (07:45)
[2020-06-05] MEDS: Sennosides/Docusate Sodium TABLET PO SCH ×2 (07:45→21:12)
[2020-06-05] MEDS: Gabapentin 300 MG CAPSULE PO SCH ×3 (07:45→21:14)
[2020-06-06] MEDS: ceFAZolin 2,000 MG in 0.9 % Sodium Chloride 100 ML IVPB SCH ×4 (00:34→23:00)
[2020-06-06] MEDS: Ipratropium/Albuterol Neb 3 ML IH SCH ×5 (04:12→19:53)
[2020-06-06] MEDS: *HR* Heparin 5,000 UNIT/ML VIAL SQ SCH ×3 (05:41→20:43)
[2020-06-06] MEDS: *HR* HYDROcodone/Acet 10/325 mg TABLET PO PRN ×4 (05:45→20:43)
[2020-06-06 06:19] LABS: Hematocrit 29.1 % (35.3-44.9); Mean Corpuscular HGB Conc 30.9 g/dL (31.6-35.5); Mean Corpuscular Hemoglobin 29.4 pg (28.0-33.3); Mean Corpuscular Volume 95.1 fL (83.0-100.0); Mean Platelet Volume 9.9 fL (9.4-12.4); Platelet Count 399 K/mcL (140-400); Red Blood Count 3.06 M/mcL (3.82-4.97)
[2020-06-06 06:37] LABS: BUN/Creatinine Ratio 19 (6-26); Blood Urea Nitrogen 7 mg/dL (8-23); Calcium 8.8 mg/dL (8.6-10.3); Carbon Dioxide 29 mEq/L (23-29); Chloride 97 mEq/L (98-107); Glucose 120 mg/dL (70-105); Magnesium 1.8 mg/dL (1.6-2.6); Osmolality,Calculated 277 (280-300); Phosphorous 3.3 mg/dL (2.7-4.5); Potassium 4.1 mEq/L (3.5-5.1); Sodium 134 mEq/L (136-145); eGFR For African Americans > 60 (> 60); eGFR For Non-African Americans > 60 (> 60)
[2020-06-06] MEDS: Sennosides/Docusate Sodium TABLET PO SCH ×2 (08:17→19:42)
[2020-06-06] MEDS: Isosorbide MONOnitrate (24 HR) 30 MG TAB.ER.24H PO SCH (08:17)
[2020-06-06] MEDS: Furosemide 20 MG TABLET PO SCH (08:17)
[2020-06-06] MEDS: Aspirin 81 MG TAB.CHEW PO SCH (08:17)
[2020-06-06] MEDS: Gabapentin 300 MG CAPSULE PO SCH ×3 (08:17→19:43)
[2020-06-06] MEDS: polyethylene glycoL 3350 17 GM POWD.PACK PO SCH (08:17)
[2020-06-07] MEDS: Ipratropium/Albuterol Neb 3 ML IH SCH ×7 (00:21→23:30)
[2020-06-07] MEDS: *HR* HYDROcodone/Acet 10/325 mg TABLET PO PRN ×3 (06:03→20:12)
[2020-06-07] MEDS: *HR* Heparin 5,000 UNIT/ML VIAL SQ SCH ×3 (06:04→20:12)
[2020-06-07] MEDS: Aspirin 81 MG TAB.CHEW PO SCH (08:29)
[2020-06-07] MEDS: Furosemide 20 MG TABLET PO SCH (08:29)
[2020-06-07] MEDS: ceFAZolin 2,000 MG in 0.9 % Sodium Chloride 100 ML IVPB SCH ×3 (08:29→23:48)
[2020-06-07] MEDS: Isosorbide MONOnitrate (24 HR) 30 MG TAB.ER.24H PO SCH (08:29)
[2020-06-07] MEDS: polyethylene glycoL 3350 17 GM POWD.PACK PO SCH (08:29)
[2020-06-07] MEDS: Sennosides/Docusate Sodium TABLET PO SCH ×2 (08:29→20:12)
[2020-06-07] MEDS: Gabapentin 300 MG CAPSULE PO SCH ×3 (08:29→20:12)
[2020-06-08] MEDS: *HR* HYDROcodone/Acet 10/325 mg TABLET PO PRN ×2 (00:24→10:54)
[2020-06-08] MEDS: Ipratropium/Albuterol Neb 3 ML IH SCH ×6 (03:45→23:10)
[2020-06-08] MEDS: *HR* Heparin 5,000 UNIT/ML VIAL SQ SCH ×3 (06:07→21:17)
[2020-06-08] MEDS: Isosorbide MONOnitrate (24 HR) 30 MG TAB.ER.24H PO SCH (07:50)
[2020-06-08] MEDS: Aspirin 81 MG TAB.CHEW PO SCH (07:50)
[2020-06-08] MEDS: polyethylene glycoL 3350 17 GM POWD.PACK PO SCH (07:50)
[2020-06-08] MEDS: Furosemide 20 MG TABLET PO SCH (07:50)
[2020-06-08] MEDS: Sennosides/Docusate Sodium TABLET PO SCH ×2 (07:50→21:17)
[2020-06-08] MEDS: Gabapentin 300 MG CAPSULE PO SCH ×3 (07:51→21:16)
[2020-06-08] MEDS: ceFAZolin 2,000 MG in 0.9 % Sodium Chloride 100 ML IVPB SCH ×2 (07:58→15:41)
[2020-06-09] MEDS: Ipratropium/Albuterol Neb 3 ML IH SCH ×5 (03:36→20:33)
[2020-06-09] MEDS: Isosorbide MONOnitrate (24 HR) 30 MG TAB.ER.24H PO SCH (07:36)
[2020-06-09] MEDS: Furosemide 20 MG TABLET PO SCH (07:36)
[2020-06-09] MEDS: Aspirin 81 MG TAB.CHEW PO SCH (07:36)
[2020-06-09] MEDS: Sennosides/Docusate Sodium TABLET PO SCH ×2 (07:36→20:08)
[2020-06-09] MEDS: Gabapentin 300 MG CAPSULE PO SCH ×3 (07:36→20:08)
[2020-06-09] MEDS: *HR* Heparin 5,000 UNIT/ML VIAL SQ SCH ×3 (07:37→20:09)
[2020-06-09] MEDS: polyethylene glycoL 3350 17 GM POWD.PACK PO SCH (07:37)
[2020-06-09] MEDS: *HR* HYDROcodone/Acet 10/325 mg TABLET PO PRN ×2 (11:21→20:16)
[2020-06-10] MEDS: Ipratropium/Albuterol Neb 3 ML IH SCH ×7 (00:15→23:42)
[2020-06-10] MEDS: *HR* HYDROcodone/Acet 10/325 mg TABLET PO PRN ×3 (00:45→14:49)
[2020-06-10] MEDS: *HR* Heparin 5,000 UNIT/ML VIAL SQ SCH ×3 (05:50→21:19)
[2020-06-10] MEDS: Gabapentin 300 MG CAPSULE PO SCH ×3 (07:47→21:19)
[2020-06-10] MEDS: Aspirin 81 MG TAB.CHEW PO SCH (07:47)
[2020-06-10] MEDS: Sennosides/Docusate Sodium TABLET PO SCH ×2 (07:47→21:18)
[2020-06-10] MEDS: Furosemide 20 MG TABLET PO SCH (07:47)
[2020-06-10] MEDS: Isosorbide MONOnitrate (24 HR) 30 MG TAB.ER.24H PO SCH (07:47)
[2020-06-10] MEDS: polyethylene glycoL 3350 17 GM POWD.PACK PO SCH (07:48)
[2020-06-10] MEDS: ceFAZolin 1,000 MG in Water for inj. (sterile) 10 ML IVP SCH ×2 (12:56→21:18)
[2020-06-10] MEDS ORDERED: ceFAZolin 1,000 MG in 0.9 % Sodium Chloride 10 ML IVP SCH (13:00)
[2020-06-10 15:23] LABS: Bilirubin,Urine Negative (Negative); Blood,Urine Moderate (Negative); Clarity,Urine Clear (Clear); Color,Urine Yellow (Yellow); Glucose,Urine (UA) Normal (Normal); Hyaline Casts,Urine Few per lpf (None Seen); Ketones,Urine Negative (Negative); Leukocyte Esterase,Urine Negative (Negative); Mucus,Urine Few per lpf (None-Few); Nitrite,Urine Negative (Negative); Protein,Urine Trace mg/dL (Neg-Trace); RBC,Urine 30-50 per hpf (0-3); Specific Gravity,Urine 1.028 (1.010-1.025); Squamous Epithelial Cell,Urine Few per hpf (None-Few); Urobilinogen,Urine Normal (Normal); WBC,Urine 0-3 per hpf (0-3)
[2020-06-10 15:26] LABS: Influenza A PCR Negative (Negative); Influenza B PCR Negative (Negative); Resp. Syncytial Virus PCR Negative (Negative)
[2020-06-10 16:18] LABS: SARS-CoV-2 by PCR (In House) Negative (Negative)
[2020-06-10 17:28] LABS: Hematocrit 30.3 % (35.3-44.9); Hemoglobin 9.3 g/dL (11.5-15.4); Mean Corpuscular HGB Conc 30.7 g/dL (31.6-35.5); Mean Corpuscular Hemoglobin 28.4 pg (28.0-33.3); Mean Corpuscular Volume 92.7 fL (83.0-100.0); Mean Platelet Volume 10.1 fL (9.4-12.4); Platelet Count 354 K/mcL (140-400); Red Blood Count 3.27 M/mcL (3.82-4.97); Red Cell Distribution Width 14.8 % (11.5-14.5); White Blood Count 7.6 K/mcL (4.3-11.1)
[2020-06-10 17:51] LABS: BUN/Creatinine Ratio 31 (6-26); Blood Urea Nitrogen 14 mg/dL (8-23); Calcium 8.4 mg/dL (8.6-10.3); Carbon Dioxide 29 mEq/L (23-29); Chloride 98 mEq/L (98-107); Glucose 144 mg/dL (70-105); Osmolality,Calculated 283 (280-300); Potassium 4.1 mEq/L (3.5-5.1); Sodium 135 mEq/L (136-145); eGFR For African Americans > 60 (> 60); eGFR For Non-African Americans > 60 (> 60)
[2020-06-11] MEDS: Ipratropium/Albuterol Neb 3 ML IH SCH ×3 (04:09→10:41)
[2020-06-11] MEDS: ceFAZolin 1,000 MG in Water for inj. (sterile) 10 ML IVP SCH (06:11)
[2020-06-11] MEDS: *HR* Heparin 5,000 UNIT/ML VIAL SQ SCH ×2 (06:11→13:14)
[2020-06-11] MEDS: Furosemide 20 MG TABLET PO SCH (07:15)
[2020-06-11] MEDS: Sennosides/Docusate Sodium TABLET PO SCH (07:15)
[2020-06-11] MEDS: *HR* HYDROcodone/Acet 10/325 mg TABLET PO PRN ×2 (07:15→13:24)
[2020-06-11] MEDS: Gabapentin 300 MG CAPSULE PO SCH ×2 (07:15→13:14)
[2020-06-11] MEDS: Aspirin 81 MG TAB.CHEW PO SCH (07:15)
[2020-06-11] MEDS: Isosorbide MONOnitrate (24 HR) 30 MG TAB.ER.24H PO SCH (07:15)
[2020-06-11] MEDS: polyethylene glycoL 3350 17 GM POWD.PACK PO SCH (07:16)
[2020-06-11 11:50] VITALS: BP 112/62
[2020-06-11] MEDS ORDERED: ceFAZolin 2,000 MG in Water for inj. (sterile) 20 ML IVP SCH (14:00)
== END 2020-06-11 14:51 | DRG 853 ==
LOC: 2ANU 06:51 → EMEROOARM 06:51 → 2NNU 11:08
PROVIDERS: ADMIT Thoracic Surgery (Cardiothoracic Vascular Surgery); ATTEND Thoracic Surgery (Cardiothoracic Vascular Surgery)

== ENCOUNTER 2020-07-30 12:50 | Observation (INO) ==
[2020-07-30] MEDS ORDERED: Azithromycin 500 MG in 0.9 % Sodium Chloride 250 ML IVPB ONE (13:31)
[2020-07-30] MEDS ORDERED: cefTRIAXone 1,000 MG in Water for inj. (sterile) 10 ML IVP ONE (13:31)
[2020-07-30] MEDS ORDERED: methylPREDNISolone 125 MG/2 ML VIAL IVP ONE (13:31)
[2020-07-30] MEDS ORDERED: Ipratropium/Albuterol Neb 3 ML IH ONE (13:33)
[2020-07-30 14:22] LABS: Basophils # 0.1 K/mcL (0.0-0.2); Basophils % 0.9 %; Eosinophils # 0.3 K/mcL (0.0-0.6); Eosinophils % 3.1 %; Hematocrit 41.1 % (35.3-44.9); Hemoglobin 12.6 g/dL (11.5-15.4); Immature Granulocytes % 0.4 % (0-4); Lymphocytes # 1.8 K/mcL (0.6-4.6); Lymphocytes % 19.7 %; Mean Corpuscular HGB Conc 30.7 g/dL (31.6-35.5); Mean Corpuscular Hemoglobin 26.6 pg (28.0-33.3); Mean Corpuscular Volume 86.9 fL (83.0-100.0); Mean Platelet Volume 10.5 fL (9.4-12.4); Monocytes # 0.7 K/mcL (0.0-1.3); Monocytes % 7.5 %; Neutrophils # 6.3 K/mcL (1.6-8.9); Platelet Count 335 K/mcL (140-400); Red Blood Count 4.73 M/mcL (3.82-4.97); Red Cell Distribution Width 13.9 % (11.5-14.5); Segmented Neutrophils % 68.4 %; White Blood Count 9.3 K/mcL (4.3-11.1)
[2020-07-30 14:46] LABS: BUN/Creatinine Ratio 17 (6-26); Blood Urea Nitrogen 9 mg/dL (8-23); Calcium 9.5 mg/dL (8.6-10.3); Carbon Dioxide 24 mEq/L (23-29); Chloride 103 mEq/L (98-107); Glucose 117 mg/dL (70-105); Osmolality,Calculated 286 (280-300); Potassium 3.7 mEq/L (3.5-5.1); Sodium 138 mEq/L (136-145); Troponin I < 0.03 ng/mL (< 0.04); eGFR For African Americans > 60 (> 60); eGFR For Non-African Americans > 60 (> 60)
[2020-07-30 15:39] LABS: Bacteria,Urine Few per hpf (None-Few); Bilirubin,Urine Negative (Negative); Blood,Urine Small (Negative); Clarity,Urine Turbid (Clear); Color,Urine Colorless (Yellow); Glucose,Urine (UA) Normal (Normal); Ketones,Urine Negative (Negative); Leukocyte Esterase,Urine Moderate (Negative); Mucus,Urine Few per lpf (None-Few); Nitrite,Urine Negative (Negative); Protein,Urine Negative (Neg-Trace); Squamous Epithelial Cell,Urine Moderate per hpf (None-Few); Urobilinogen,Urine Normal (Normal)
[2020-07-30] MEDS ORDERED: Ondansetron 4 MG/2 ML VIAL IVP PRN (16:17)
[2020-07-30] MEDS ORDERED: Naloxone 0.4 MG/ML INJ IVP PRN (16:17)
[2020-07-30] MEDS ORDERED: *HR* HYDROcodone/Acet 5/325 mg TABLET PO PRN (16:17)
[2020-07-30] MEDS ORDERED: Isovue-370 500 ML BOTTLE IVP ONE (17:13)
[2020-07-30] MEDS: Ipratropium/Albuterol Neb 3 ML IH SCH ×2 (20:18→23:09)
[2020-07-30] MEDS: *HR* Heparin 5,000 UNIT/ML VIAL SQ SCH (21:49)
[2020-07-31] MEDS: Ipratropium/Albuterol Neb 3 ML IH SCH ×3 (03:54→10:59)
[2020-07-31] MEDS: *HR* Heparin 5,000 UNIT/ML VIAL SQ SCH (06:24)
[2020-07-31 06:54] LABS: Basophils % 0.1 %; Hematocrit 38.3 % (35.3-44.9); Hemoglobin 11.9 g/dL (11.5-15.4); Immature Granulocytes % 0.6 % (0-4); Lymphocytes # 1.2 K/mcL (0.6-4.6); Lymphocytes % 14.9 %; Mean Corpuscular HGB Conc 31.1 g/dL (31.6-35.5); Mean Corpuscular Hemoglobin 26.9 pg (28.0-33.3); Mean Corpuscular Volume 86.5 fL (83.0-100.0); Mean Platelet Volume 10.5 fL (9.4-12.4); Monocytes # 0.5 K/mcL (0.0-1.3); Monocytes % 5.7 %; Neutrophils # 6.5 K/mcL (1.6-8.9); Platelet Count 289 K/mcL (140-400); Red Blood Count 4.43 M/mcL (3.82-4.97); Segmented Neutrophils % 78.7 %; White Blood Count 8.3 K/mcL (4.3-11.1)
[2020-07-31 06:55] LABS: INR 1.2; Prothrombin Time 13.8 Seconds (9.4-12.1)
[2020-07-31 06:58] LABS: Activated Partial Thrombo Time 34.1 Seconds (26.0-36.0)
[2020-07-31 07:11] LABS: BUN/Creatinine Ratio 16 (6-26); Blood Urea Nitrogen 9 mg/dL (8-23); Calcium 9.3 mg/dL (8.6-10.3); Carbon Dioxide 24 mEq/L (23-29); Chloride 103 mEq/L (98-107); Glucose 122 mg/dL (70-105); Magnesium 1.8 mg/dL (1.6-2.6); Osmolality,Calculated 286 (280-300); Phosphorous 3.5 mg/dL (2.7-4.5); Potassium 3.9 mEq/L (3.5-5.1); Sodium 138 mEq/L (136-145); eGFR For African Americans > 60 (> 60); eGFR For Non-African Americans > 60 (> 60)
[2020-07-31] MEDS ORDERED: predniSONE 20 MG TABLET PO SCH (09:00)
[2020-07-31] MEDS ORDERED: Furosemide 20 MG TABLET PO SCH (09:00)
[2020-07-31] MEDS ORDERED: levoFLOXacin 750 MG/150 ML 750 MG/150 ML BAG IVPB SCH (09:00)
[2020-07-31] MEDS ORDERED: Isosorbide MONOnitrate (24 HR) 30 MG TAB.ER.24H PO SCH (09:00)
[2020-07-31 11:58] VITALS: BP 119/81
== END 2020-07-31 13:08 | disposition home or self-care (01) ==
LOC: 2ANU 12:50 → EMEROOARM 12:50 → 2ANU 20:40
PROVIDERS: ADMIT Internal Medicine; ATTEND Internal Medicine